=== PATIENT | female | born 1995 | race African-American/Black ===

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

== ENCOUNTER 2017-09-20 21:50 | Emergency (ER) | payer OTHER ==
[2017-09-20] MEDS: NORCO 5/325MG TABLET (BULK FOR ED) PO (22:09)
== END 2017-09-20 22:20 | disposition home or self-care (01) ==
LOC: M ED 21:50
DX: S02.5XXA Fracture of tooth (traumatic), initial encounter for closed fracture (principal); W18.39XA Other fall on same level, initial encounter; Y92.330 Ice skating rink (indoor) (outdoor) as the place of occurrence of the external cause; Y93.21 Activity, ice skating; Y99.8 Other external cause status
CPT/HCPCS: 99282

== ENCOUNTER 2018-04-20 13:15 | Emergency (ER) | payer OTHER | END 2018-04-20 16:38 | disposition home or self-care (01) | LOC: M ED 13:15 | DX: H10.33 Unspecified acute conjunctivitis, bilateral (principal); Z79.899 Other long term (current) drug therapy | CPT/HCPCS: 99282 ==

== ENCOUNTER → 2019-07-19 | Outpatient (REF) | payer OTHER, MEDICAID ==
[~2019-07-19] MED LIST: ACUV0.45; HYDR-3715 PO; PATA0.2S OU; VIGA0.02 OP; ZYRT10CA PO
[2019-07-19 13:22] LABS: BASO # 0.1 10^3/uL (0.0-0.2); BASO % 0.7 % (0.0-1.0); EOS # 0.4 10^3/uL (0.0-0.5); EOS % 5.6 % (0.0-3.0); HEMATOCRIT 42.5 % (36.0-47.0); HEMOGLOBIN 14.3 g/dl (12.0-15.5); LYMPH # 2.9 10^3/uL (1.5-5.0); LYMPH % 41.6 % (24.0-44.0); MEAN CORPUSCULAR HEMOGLOBIN 30.9 pg (27.0-33.0); MEAN CORPUSCULAR HGB CONC 33.6 g/dl (32.0-36.5); MEAN CORPUSCULAR VOLUME 91.8 fl (80.0-96.0); MONO # 0.4 10^3/uL (0.0-0.8); MONO % 5.7 % (0.0-5.0); NEUTROPHILS # 3.2 10^3/uL (1.5-8.5); NEUTROPHILS % 46.3 % (36.0-66.0); PLATELET COUNT, AUTOMATED 183 10^3/uL (150-450); RED BLOOD COUNT 4.63 10^6/uL (4.00-5.40)
[2019-07-19 13:48] LABS: ALBUMIN 4.7 GM/DL (3.2-5.2); ALT/SGPT 16 U/L (12-78); BILIRUBIN,TOTAL 0.4 MG/DL (0.2-1.0); BLOOD UREA NITROGEN 11 MG/DL (7-18); CARBON DIOXIDE LEVEL 30 MEQ/L (21-32); CHLORIDE LEVEL 104 MEQ/L (98-107); CHOLESTEROL LEVEL 178 MG/DL (<200); CHOLESTEROL RISK RATIO 2.094 (<5); CREATININE FOR GFR 0.87 MG/DL (0.55-1.30); FERRITIN 30 NG/ML (8-252); FREE T4 1.09 NG/DL (0.76-1.46); GLOMERULAR FILTRATION RATE > 60.0 (>60); GLUCOSE, FASTING 98 MG/DL (70-100); HDL CHOLESTEROL 85 MG/DL (>40); IRON (FE) 77 UG/DL (50-170); LDL CHOLESTEROL 83 MG/DL (<100); NON-HDL-C 93 MG/DL; PERCENT SATURATION 21.2 % (13.2-45.0); POTASSIUM SERUM 4.3 MEQ/L (3.5-5.1); SODIUM LEVEL 142 MEQ/L (136-145); THYROID STIMULATING HORMONE 0.776 uIU/ML (0.358-3.740); TOTAL IRON BINDING CAPACITY 363 UG/DL (250-450); TOTAL PROTEIN 8.7 GM/DL (6.4-8.2); TRIGLYCERIDES LEVEL 49 MG/DL (<150); VITAMIN B12 LEVEL 474 PG/ML (247-911)
[2019-07-19 15:19] LABS: HEMOGLOBIN A1c 5.4 %
[2019-07-19 15:41] LABS: TOTAL 25(OH) VITAMIN D 12.2 NG/ML (30.0-100.0)
== END ==
LOC: M LAB REF 12:42
PROVIDERS: ATTEND Nurse Practitioner Family
DX: Z00.00 Encounter for general adult medical examination without abnormal findings (principal)

== ENCOUNTER 2019-11-02 13:56 | Emergency (ER) | payer MEDICAID, OTHER ==
[~2019-11-02] VITALS: Ht 160 cm; Wt 49.6 kg
[2019-11-02 15:00] LABS: BASO # 0.1 10^3/uL (0.0-0.2); BASO % 0.6 % (0.0-1.0); EOS # 0.3 10^3/uL (0.0-0.5); EOS % 3.1 % (0.0-3.0); HEMATOCRIT 40.1 % (36.0-47.0); HEMOGLOBIN 13.4 g/dl (12.0-15.5); LYMPH # 2.9 10^3/uL (1.5-5.0); LYMPH % 32.3 % (24.0-44.0); MEAN CORPUSCULAR HEMOGLOBIN 30.4 pg (27.0-33.0); MEAN CORPUSCULAR HGB CONC 33.4 g/dl (32.0-36.5); MEAN CORPUSCULAR VOLUME 90.9 fl (80.0-96.0); MONO # 0.6 10^3/uL (0.0-0.8); MONO % 7.1 % (0.0-5.0); NEUTROPHILS % 56.6 % (36.0-66.0); PLATELET COUNT, AUTOMATED 213 10^3/uL (150-450); RED BLOOD COUNT 4.41 10^6/uL (4.00-5.40); WHITE BLOOD COUNT 8.9 10^3/uL (4.0-10.0)
[2019-11-02 15:15] LABS: HCG, SERUM QUALITATIVE POSITIVE (NEGATIVE)
[2019-11-02 15:19] LABS: ALBUMIN 4.6 GM/DL (3.2-5.2); ALT/SGPT 18 U/L (12-78); BILIRUBIN,DIRECT 0.1 MG/DL (0.0-0.2); BILIRUBIN,TOTAL 0.4 MG/DL (0.2-1.0); BLOOD UREA NITROGEN 14 MG/DL (7-18); CARBON DIOXIDE LEVEL 27 MEQ/L (21-32); CHLORIDE LEVEL 107 MEQ/L (98-107); CREATININE FOR GFR 0.64 MG/DL (0.55-1.30); GLOMERULAR FILTRATION RATE > 60.0 (>60); GLUCOSE, FASTING 74 MG/DL (70-100); LIPASE 74 U/L (73-393); POTASSIUM SERUM 3.9 MEQ/L (3.5-5.1); SODIUM LEVEL 138 MEQ/L (136-145); TOTAL PROTEIN 7.8 GM/DL (6.4-8.2)
--- NOTE | 2019-11-02 16:35 | REP ---
Clinical: Right-sided abdominal pain. Technique: Transabdominal and transvaginal pelvic ultrasound with color Doppler evaluation of the ovaries. Findings: Heterogeneous anteverted uterus measures 7.5 x 3.7 x 4.9 cm. Endometrial complex is thickened and heterogeneous with two small cystic areas noted. No definite yolk sac or pole identified in either cystic area. Bilateral ovaries are normal in vascularity without torsion. Right ovary measures 3.7 x 2.7 x 4.6 cm (RI 0.56) and includes 2.7 cm cyst. Left ovary measures 2.9 x 1.6 x 2.7 cm (RI 0.59). No pelvic free fluid. Impression: 1. No definite intrauterine . Correlation with serial HCG levels recommended. 2. Differential diagnosis would include early , blighted ovum/spontaneous , and less likely ectopic cannot be excluded. Electronically Signed by Marko Silva MD 11/02/2019 04:27 P
[2019-11-02 16:45] LABS: HCG, SERUM QUANTITATIVE 2047 MIU/ML
[2019-11-02 17:05] VITALS: BP 116/69
== END 2019-11-02 17:18 | disposition home or self-care (01) ==
LOC: M ED 13:56
DX: O26.891 Other specified pregnancy related conditions, first trimester (principal); R10.2 Pelvic and perineal pain; Z3A.01 Less than 8 weeks gestation of pregnancy

== ENCOUNTER → 2019-11-04 | Outpatient (CLI) | payer OTHER | LOC: M LAB 11:49 | PROVIDERS: ATTEND Physician Assistant | DX: O99.89 Other specified diseases and conditions complicating pregnancy, childbirth and the puerperium (principal); R10.2 Pelvic and perineal pain; Z3A.00 Weeks of gestation of pregnancy not specified ==

== ENCOUNTER → 2019-11-24 | Outpatient (REF) | payer OTHER ==
[2019-11-24 14:28] LABS: HEMATOCRIT 38.1 % (36.0-47.0); MEAN CORPUSCULAR HEMOGLOBIN 30.9 pg (27.0-33.0); MEAN CORPUSCULAR HGB CONC 34.1 g/dl (32.0-36.5); MEAN CORPUSCULAR VOLUME 90.5 fl (80.0-96.0); PLATELET COUNT, AUTOMATED 203 10^3/uL (150-450); RED BLOOD COUNT 4.21 10^6/uL (4.00-5.40); WHITE BLOOD COUNT 8.8 10^3/uL (4.0-10.0)
[2019-11-25 15:58] LABS: HIV 1&2 SCREEN CENTAUR NEGATIVE (NEGATIVE); RUBELLA IgG QUALITATIVE IMMUNE (IMMUNE)
[2019-11-26 09:14] LABS: HEPATITIS C VIRUS ABY INDEX < 0.0 INDEX (<0.8)
[2019-11-26 14:11] LABS: HEMOGLOBIN A 96.4 % (96.4-98.8); HEMOGLOBIN A2 2.7 % (1.8-3.2); HEMOGLOBIN F (FETAL) 0.9 % (0.0-2.0); HGB SOLUBILITY Negative (Negative)
== END ==
LOC: M LAB REF 13:14
PROVIDERS: ATTEND Obstetrics & Gynecology
DX: Z32.01 Encounter for pregnancy test, result positive (principal)

== ENCOUNTER → 2019-11-26 | Outpatient (CLI) | payer OTHER ==
--- NOTE | 2019-11-26 12:17 | REP ---
First trimester obstetric ultrasound for dating/viability: There is an intrauterine gestational sac with a pole. The heart rate is 157 beats per minute. The pole crown-rump length is 1.8 cm. This corresponds to a gestational age of 8 weeks 2 days/KEVIN 07/05/2020. Gestational age by LMP is 7 weeks 5 days/KEVIN 07/09/2020. There is no subchorionic hematoma. There is a right ovarian hyperechoic area measuring 2.1 x 1.4 x 2.0 cm, likely a hemorrhagic corpus luteum. Electronically Signed by El Harrison MD 11/26/2019 12:08 P
== END ==
LOC: M RAD 10:01
PROVIDERS: ATTEND Obstetrics & Gynecology
DX: Z34.81 Encounter for supervision of other normal pregnancy, first trimester (principal)

== ENCOUNTER → 2020-04-21 | Outpatient (CLI) | payer OTHER ==
[~2020-04-21] MED LIST changes: +OLOP2.5D3 OU; -PATA0.2S OU
[2020-05-20 03:48] LABS: HEMATOCRIT 31.6 % (36.0-47.0); HEMOGLOBIN 10.6 g/dl (12.0-15.5); MEAN CORPUSCULAR HEMOGLOBIN 31.5 pg (27.0-33.0); MEAN CORPUSCULAR HGB CONC 33.5 g/dl (32.0-36.5); PLATELET COUNT, AUTOMATED 204 10^3/uL (150-450); RED BLOOD COUNT 3.36 10^6/uL (4.00-5.40); WHITE BLOOD COUNT 11.4 10^3/uL (4.0-10.0)
== END ==
LOC: M LAB 15:09
PROVIDERS: ATTEND Advanced Practice Midwife
DX: Z34.82 Encounter for supervision of other normal pregnancy, second trimester (principal); Z3A.00 Weeks of gestation of pregnancy not specified

== ENCOUNTER 2021-04-09 18:17 | Emergency (ER) | payer MEDICAID, OTHER ==
[~2021-04-09] VITALS: Ht 160 cm; Wt 60.1 kg
[2021-04-09 18:17] VITALS: BP 125/92
[2021-04-09] MEDS ORDERED: DEBL1TAB (18:26)
== END 2021-04-09 19:55 | disposition home or self-care (01) ==
LOC: M ED 18:17
DX: S06.0X0A Concussion without loss of consciousness, initial encounter (principal); W10.8XXA Fall (on) (from) other stairs and steps, initial encounter; Y92.018 Other place in single-family (private) house as the place of occurrence of the external cause; Z79.3 Long term (current) use of hormonal contraceptives

== ENCOUNTER → 2021-07-19 | Outpatient (REF) | payer OTHER ==
[~2021-07-19] MED LIST changes: +DEBL1TAB
[2021-07-19 18:01] LABS: HEMATOCRIT 37.1 % (36.0-47.0); HEMOGLOBIN 12.6 g/dl (12.0-15.5); MEAN CORPUSCULAR VOLUME 91.4 fl (80.0-96.0); PLATELET COUNT, AUTOMATED 204 10^3/uL (150-450); RED BLOOD COUNT 4.06 10^6/uL (4.00-5.40); WHITE BLOOD COUNT 8.5 10^3/uL (4.0-10.0)
[2021-07-19 18:30] LABS: HCG, SERUM QUANTITATIVE 340 MIU/ML
[2021-07-19 18:47] LABS: HEPATITIS B SURFACE ANTIGEN NEGATIVE (NEGATIVE)
[2021-07-19 19:15] LABS: HEPATITIS C VIRUS ABY INDEX < 0.0 INDEX (<0.8)
[2021-07-19 19:16] LABS: HIV 1&2 SCREEN CENTAUR NEGATIVE (NEGATIVE)
== END ==
LOC: M LAB REF 17:34
PROVIDERS: ATTEND Advanced Practice Midwife
DX: Z32.01 Encounter for pregnancy test, result positive (principal); O36.80X0 Pregnancy with inconclusive fetal viability, not applicable or unspecified

== ENCOUNTER → 2021-07-23 | Outpatient (REF) | payer OTHER | LOC: M LAB REF 11:28 | PROVIDERS: ATTEND Advanced Practice Midwife | DX: O36.80X0 Pregnancy with inconclusive fetal viability, not applicable or unspecified (principal) ==

== ENCOUNTER → 2021-07-27 | Outpatient (REF) | payer OTHER ==
[2021-07-27 22:29] LABS: GC DNA AMPLIFICATION NEGATIVE (NEGATIVE)
[2021-07-27 22:39] LABS: APPEARANCE, URINE MANUAL CLOUDY (CLEAR); COLOR, URINE MANUAL LT YELLOW (YELLOW)
[2021-07-27 22:41] LABS: SPECIFIC GRAVITY,URINE MANUAL 1.025 (1.002-1.035)
[2021-07-27 22:42] LABS: BILIRUBIN, URINE MANUAL NEGATIVE (NEGATIVE); BLOOD URINE MANUAL NEGATIVE (NEGATIVE); GLUCOSE, URINE (UA) MANUAL NEGATIVE (NEGATIVE); KETONE, URINE MANUAL NEGATIVE (NEGATIVE); LEUKOCYTE ESTERASE, URINE MAN POSITIVE (NEGATIVE); NITRITE, URINE MANUAL NEGATIVE (NEGATIVE); PROTEIN, URINE MANUAL TRACE mg/dL (NEGATIVE); UROBILINOGEN, URINE MANUAL NORMAL (NORMAL)
[2021-07-27 22:51] LABS: BACTERIA, URINE MOD AMOUNT; HYALINE CAST, URINE NONE SEEN /lpf (0-1); MUCUS, URINE SMALL AMOUNT (NEGATIVE); RBC, URINE NONE SEEN /hpf (0-3); SQUAMOUS EPITHELIAL CELL URINE MOD AMOUNT /hpf (SMALL AMT)
== END ==
LOC: M LAB REF 20:45
PROVIDERS: ATTEND Physician Assistant
DX: R30.0 Dysuria (principal)

== ENCOUNTER 2021-08-12 13:22 | Emergency (ER) | payer OTHER ==
[~2021-08-12] VITALS: Ht 160 cm; Wt 63.6 kg
[2021-08-12] MEDS ORDERED: MULTTAB20 PO (13:43)
[2021-08-12] MEDS ORDERED: NS 1,000 ML IV ONE (18:50)
[2021-08-12] MEDS ORDERED: FAMOTIDINE INJ 20MG/2ML VIAL (S0028 PER 1) IVP ONE (18:50)
[2021-08-12] MEDS ORDERED: ONDANSETRON 4MG/2ML VIAL IV ONE (18:55)
[2021-08-12 19:15] LABS: BASO % 0.3 % (0.0-1.0); EOS # 0.1 10^3/uL (0.0-0.5); EOS % 1.1 % (0.0-3.0); HEMATOCRIT 40.1 % (36.0-47.0); HEMOGLOBIN 13.7 g/dl (12.0-15.5); LYMPH % 19.1 % (24.0-44.0); MEAN CORPUSCULAR HEMOGLOBIN 30.7 pg (27.0-33.0); MEAN CORPUSCULAR HGB CONC 34.2 g/dl (32.0-36.5); MEAN CORPUSCULAR VOLUME 89.9 fl (80.0-96.0); MONO # 0.4 10^3/uL (0.0-0.8); NEUTROPHILS # 7.7 10^3/uL (1.5-8.5); NEUTROPHILS % 75.1 % (36.0-66.0); PLATELET COUNT, AUTOMATED 229 10^3/uL (150-450); RED BLOOD COUNT 4.46 10^6/uL (4.00-5.40); WHITE BLOOD COUNT 10.2 10^3/uL (4.0-10.0)
[2021-08-12 20:06] LABS: ALBUMIN 4.1 GM/DL (3.2-5.2); BILIRUBIN,DIRECT 0.1 MG/DL (0.0-0.2); BILIRUBIN,TOTAL 0.4 MG/DL (0.2-1.0); TOTAL PROTEIN 7.8 GM/DL (6.4-8.2)
[2021-08-12 20:16] LABS: RSV AMPLIFICATION NEGATIVE (NEGATIVE)
[2021-08-12 21:34] VITALS: BP 130/79
[2021-08-12] MEDS ORDERED: ONDA4TAB6 PO (22:09)
[2021-08-12] MEDS ORDERED: FAMO20TA PO (22:09)
== END 2021-08-12 22:25 | disposition home or self-care (01) ==
LOC: M ED 13:22
DX: O99.891 Other specified diseases and conditions complicating pregnancy (principal); R10.10 Upper abdominal pain, unspecified; R11.2 Nausea with vomiting, unspecified; Z3A.01 Less than 8 weeks gestation of pregnancy
CPT/HCPCS: 36415; 76801; 80047; 80076; 83690; 84702; 85025; 87631; 93976; 96361; 96374; 96375; 99284; J2405

== ENCOUNTER → 2021-09-05 | Outpatient (REF) ==
[~2021-09-05] MED LIST changes: +FAMO20TA PO; +MULTTAB20 PO; +ONDA4TAB6 PO
== END ==
LOC: M LABSMTC 12:41
PROVIDERS: ATTEND Pediatrics
DX: Z20.822 Contact with and (suspected) exposure to COVID-19 (principal)

== ENCOUNTER → 2021-09-12 | Outpatient (REF) | payer OTHER, MEDICAID ==
[2021-09-12 11:41] LABS: BASO % 0.3 % (0.0-1.0); EOS # 0.4 10^3/uL (0.0-0.5); EOS % 4.2 % (0.0-3.0); HEMATOCRIT 35.2 % (36.0-47.0); HEMOGLOBIN 12.2 g/dl (12.0-15.5); LYMPH # 2.8 10^3/uL (1.5-5.0); LYMPH % 28.8 % (24.0-44.0); MEAN CORPUSCULAR HEMOGLOBIN 30.5 pg (27.0-33.0); MEAN CORPUSCULAR HGB CONC 34.7 g/dl (32.0-36.5); MONO # 0.4 10^3/uL (0.0-0.8); NEUTROPHILS % 62.5 % (36.0-66.0); PLATELET COUNT, AUTOMATED 180 10^3/uL (150-450); WHITE BLOOD COUNT 9.6 10^3/uL (4.0-10.0)
== END ==
LOC: M LAB REF 10:52
PROVIDERS: ATTEND Advanced Practice Midwife
DX: Z34.01 Encounter for supervision of normal first pregnancy, first trimester (principal)

== ENCOUNTER 2021-09-18 15:52 | Emergency (ER) | payer OTHER, MEDICAID ==
[~2021-09-18] VITALS: Ht 160 cm; Wt 54.0 kg
[2021-09-18 15:53] VITALS: BP 132/79
[2021-09-18] MEDS ORDERED: METO5TAB2 (16:00)
== END 2021-09-19 02:48 | disposition left against medical advice (07) ==
LOC: M ED 15:52
DX: Z53.29 Procedure and treatment not carried out because of patient's decision for other reasons (principal)

== ENCOUNTER → 2022-01-03 | Outpatient (CLI) | payer OTHER ==
[~2022-01-03] MED LIST changes: +METO5TAB2
[2022-01-03 17:40] LABS: HEMATOCRIT 29.8 % (36.0-47.0); MEAN CORPUSCULAR HEMOGLOBIN 31.6 pg (27.0-33.0); MEAN CORPUSCULAR HGB CONC 33.6 g/dl (32.0-36.5); MEAN CORPUSCULAR VOLUME 94.3 fl (80.0-96.0); PLATELET COUNT, AUTOMATED 167 10^3/uL (150-450); RED BLOOD COUNT 3.16 10^6/uL (4.00-5.40); WHITE BLOOD COUNT 10.3 10^3/uL (4.0-10.0)
== END ==
LOC: M LAB 15:51
PROVIDERS: ATTEND Obstetrics & Gynecology
DX: Z34.82 Encounter for supervision of other normal pregnancy, second trimester (principal)

== ENCOUNTER → 2022-02-07 | Outpatient (CLI) | payer OTHER | LOC: M LAB 15:48 | PROVIDERS: ATTEND Obstetrics & Gynecology | DX: Z34.83 Encounter for supervision of other normal pregnancy, third trimester (principal); Z3A.00 Weeks of gestation of pregnancy not specified ==

== ENCOUNTER → 2022-02-21 | Outpatient (REF) | payer OTHER ==
[~2022-02-21] MED LIST changes: -ACUV0.45; +KETO1DRO
== END ==
LOC: M LAB REF 16:09
PROVIDERS: ATTEND Obstetrics & Gynecology
DX: Z34.83 Encounter for supervision of other normal pregnancy, third trimester (principal)

== ENCOUNTER → 2023-10-21 | Outpatient (REF) | payer OTHER ==
[2023-10-21 15:23] LABS: BASO % 0.4 % (0.0-1.0); EOS # 0.3 10^3/uL (0.0-0.5); HEMATOCRIT 31.7 % (36.0-47.0); HEMOGLOBIN 10.5 g/dl (12.0-15.5); LYMPH % 23.9 % (24.0-44.0); MEAN CORPUSCULAR HEMOGLOBIN 31.4 pg (27.0-33.0); MEAN CORPUSCULAR HGB CONC 33.1 g/dl (32.0-36.5); MEAN CORPUSCULAR VOLUME 94.9 fl (80.0-96.0); MONO # 0.4 10^3/uL (0.0-0.8); MONO % 4.5 % (2.0-8.0); NEUTROPHILS # 5.6 10^3/uL (1.5-8.5); NEUTROPHILS % 67.7 % (36.0-66.0); PLATELET COUNT, AUTOMATED 173 10^3/uL (150-450); RED BLOOD COUNT 3.34 10^6/uL (4.00-5.40); WHITE BLOOD COUNT 8.3 10^3/uL (4.0-10.0)
[2023-10-21 15:55] LABS: ALBUMIN 3.3 G/DL (3.2-5.2); ALKALINE PHOSPHATASE 71 U/L (46-116); ALT/SGPT 14 U/L (7.0-40); AST/SGOT < 8 U/L (<34); BILIRUBIN,TOTAL 0.2 MG/DL (0.3-1.2); BLOOD UREA NITROGEN 5 MG/DL (9-23); CALCIUM LEVEL 8.7 MG/DL (8.5-10.1); CARBON DIOXIDE LEVEL 25 MMOL/L (20-31); CHLORIDE LEVEL 104 MMOL/L (98-107); CHOLESTEROL LEVEL 240 MG/DL (<200); CHOLESTEROL RISK RATIO 2.98 (<5); CREATININE FOR GFR 0.59 MG/DL (0.55-1.30); GLOMERULAR FILTRATION RATE > 60.0 (>60); GLUCOSE, FASTING 76 MG/DL (60-100); HDL CHOLESTEROL 80.5 MG/DL (>40); LDL CHOLESTEROL 141.3 MG/DL (<100); MAGNESIUM LEVEL 1.6 MG/DL (1.8-2.4); NON-HDL-C 159.5 MG/DL; SODIUM LEVEL 137 MMOL/L (136-145); TOTAL PROTEIN 6.7 G/DL (5.7-8.2); TRIGLYCERIDES LEVEL 91 MG/DL (<150)
[2023-10-21 15:58] LABS: TOTAL 25(OH) VITAMIN D 31.9 NG/ML (20.0-100.0)
== END ==
LOC: M LAB REF 13:03
PROVIDERS: ATTEND Nurse Practitioner Family
DX: Z33.1 Pregnant state, incidental (principal); D64.9 Anemia, unspecified; Z13.220 Encounter for screening for lipoid disorders; E55.9 Vitamin D deficiency, unspecified

== ENCOUNTER → 2024-11-10 | Outpatient (REF) | payer OTHER ==
[~2024-11-10] MED LIST changes: +ONDA-282 PO; -ONDA4TAB6 PO
[2024-11-10 14:29] LABS: BASO % 0.5 % (0.0-1.0); EOS # 0.3 10^3/uL (0.0-0.5); EOS % 3.5 % (0.0-3.0); HEMATOCRIT 39.4 % (36.0-47.0); HEMOGLOBIN 12.8 g/dl (12.0-15.5); LYMPH # 2.8 10^3/uL (1.5-5.0); LYMPH % 35.3 % (24.0-44.0); MEAN CORPUSCULAR HEMOGLOBIN 30.5 pg (27.0-33.0); MEAN CORPUSCULAR HGB CONC 32.5 g/dl (32.0-36.5); MONO # 0.4 10^3/uL (0.0-0.8); MONO % 5.4 % (2.0-8.0); NEUTROPHILS # 4.4 10^3/uL (1.5-8.5); PLATELET COUNT, AUTOMATED 208 10^3/uL (150-450); RED BLOOD COUNT 4.19 10^6/uL (4.00-5.40)
[2024-11-10 14:34] LABS: ALBUMIN 4.4 G/DL (3.2-5.2); ALKALINE PHOSPHATASE 50 U/L (35-104); ALT/SGPT 13 U/L (7.0-40); AST/SGOT < 8 U/L (<34); BILIRUBIN,TOTAL 0.5 MG/DL (0.3-1.2); BLOOD UREA NITROGEN 13 MG/DL (9-23); CALCIUM LEVEL 9.4 MG/DL (8.5-10.1); CARBON DIOXIDE LEVEL 28 MMOL/L (20-31); CHLORIDE LEVEL 105 MMOL/L (98-107); CHOLESTEROL LEVEL 160 MG/DL (<200); CHOLESTEROL RISK RATIO 2.49 (<5); CREATININE FOR GFR 0.72 MG/DL (0.55-1.30); FERRITIN 24.7 NG/ML (7.3-270.7); GLOMERULAR FILTRATION RATE > 60.0 (>60); GLUCOSE, FASTING 75 MG/DL (60-100); HDL CHOLESTEROL 64.2 MG/DL (>40); IRON (FE) 114 UG/DL (50-170); LDL CHOLESTEROL 87.4 MG/DL (<100); NON-HDL-C 95.8 MG/DL; PERCENT SATURATION 35.3 % (13.2-45.0); POTASSIUM SERUM 4.3 MMOL/L (3.5-5.1); SODIUM LEVEL 139 MMOL/L (136-145); THYROID STIMULATING HORMONE 0.981 uIU/ML (0.55-4.78); TOTAL IRON BINDING CAPACITY 323 UG/DL (250-425); TOTAL PROTEIN 7.8 G/DL (5.7-8.2); TRIGLYCERIDES LEVEL 42 MG/DL (<150)
[2024-11-10 14:35] LABS: TOTAL 25(OH) VITAMIN D 31.8 NG/ML (20.0-100.0)
[2024-11-10 14:36] LABS: VITAMIN B12 LEVEL 720 PG/ML (211-911)
== END ==
LOC: M LAB REF 12:59
PROVIDERS: ATTEND Nurse Practitioner Family
DX: R07.9 Chest pain, unspecified (principal); D64.9 Anemia, unspecified; Z13.220 Encounter for screening for lipoid disorders; E55.9 Vitamin D deficiency, unspecified

== ENCOUNTER → 2025-05-31 | Outpatient (CLI) | payer OTHER | LOC: M CARPUL 11:15 | PROVIDERS: ATTEND Registered Nurse | DX: R94.31 Abnormal electrocardiogram [ECG] [EKG] (principal); R07.9 Chest pain, unspecified ==

== ENCOUNTER → 2025-07-25 | Outpatient (CLI) | payer OTHER | LOC: M PLAIMG 13:24 | PROVIDERS: ATTEND Registered Nurse | DX: R94.31 Abnormal electrocardiogram [ECG] [EKG] (principal); I34.0 Nonrheumatic mitral (valve) insufficiency; I37.1 Nonrheumatic pulmonary valve insufficiency ==